=== PATIENT | female | born 1960 | race Caucasian/White ===

== ENCOUNTER 2018-05-09 07:23 | Emergency (ER) | payer OTHER ==
[~2018-05-09] VITALS: Ht 157.5 cm; Wt 98.0 kg
[~2018-05-09 07:23] MED LIST: OXYC-360 PO; ROPI.25 PO
[2018-05-09 07:25] VITALS: BP 192/102; PULSE 92; RESP 18; TEMP 97; O2SAT 96
[2018-05-09] MEDS ORDERED: DILT-48 PO (07:37)
[2018-05-09] MEDS ORDERED: CITA20TA4 PO (07:37)
--- NOTE | 2018-05-09 07:56 | PD ---
HPI Chief Complaint: Anxiety Time Seen by Provider: 07:35 Travel History International Travel<30 days: No Contact w/Intl Traveler<30days: No Traveled to known affect area: No History of Present Illness HPI This is a 57-year-old female who presents to the emergency department with increasing tearfulness, constant, severe, associated with intermittent shortness of breath, nausea and decreased appetite. Her 2 months ago and she finds that whenever she thinks about them she cannot stop crying. Her doctor started her on citalopram yesterday and she took her first dose but she feels like her symptoms are just getting worse. She denies any thoughts of hurting herself and she says she is a very optimistic person normally but she is really struggling to get her emotions under control and she feels sick. PFSH Past Medical History Cancer: Yes (facial) Diminished Hearing: No Hypertension: Yes Tetanus Vaccination: Unknown Influenza Vaccination: No ?: Not Past Surgical History Other Surgery: Yes (breast reduction) Social History Alcohol Use: Yes (occ) Tobacco Use: No Substance Use: No Allergies-Medications (Allergen,Severity, Reaction): Coded Allergies: No Known Allergies (Verified Adverse Reaction, Unknown, 05/09/18) Reported Meds & Prescriptions Reported Meds & Active Scripts Active Reported Diltiazem ER 24 HR 240 Mg Caper 240 Mg PO DAILY Citalopram (Citalopram Hydrobromide) 20 Mg Tab 20 Mg PO DAILY Review of Systems Except as stated in HPI: all other systems reviewed are Neg Physical Exam Narrative GENERAL: Tearful SKIN: Focused skin assessment warm and dry. HEAD: Atraumatic. Normocephalic. EYES: Pupils equal and round. No injection or drainage. ENT: Moist mucous membranes NECK: Trachea midline. CARDIOVASCULAR: Regular rate and rhythm. No murmur appreciated. RESPIRATORY: Clear to auscultation. Breath sounds equal bilaterally. GASTROINTESTINAL: Abdomen soft, non-tender, nondistended. MUSCULOSKELETAL: No obvious deformities. NEUROLOGICAL: Awake and alert. No obvious cranial nerve deficits. Moving all extremities.. PSYCHIATRIC: Tearful, no suicidal ideation Data Data Last Documented VS Vital Signs Date Time Temp Pulse Resp B/P (MAP) Pulse Ox O2 Delivery O2 Flow Rate FiO2 05/09/18 08:13 70 16 154/84 (107) 98 Room Air 05/09/18 07:25 97.0 Orders Orders Lorazepam Inj (Ativan Inj) (05/09/18 08:00) Sodium Chlor 0.9% 1000 Ml Inj (Ns 1000 M (05/09/18 08:00) Ondansetron Odt (Zofran Odt) (05/09/18 08:00) Acetaminophen (Tylenol) (05/09/18 08:00) ^ Insert Iv (05/09/18 07:54) Diltiazem Cd (Cardizem Cd) (05/09/18 08:30) MDM Medical Decision Making Medical Screen Exam Complete: Yes Emergency Medical Condition: Yes Differential Diagnosis Grief reaction, anxiety, depression, panic attack Narrative Course This is a 57-year-old female who presents to the emergency department having had her 2 months ago with increasing tearfulness and anxiety. On arrival she is hypertensive and tachypneic and very tearful. She appears to be having a panic attack. She was given IV Ativan and her symptoms improved significantly. I had a long conversation with her regarding normal grief reaction. I recommended that she consider an outpatient therapist or a bereavement support group and she was given information regarding our hospice bereavement program. She was given a short course of as needed Ativan but we discussed how this should only be used in an emergency and we discussed that this is a dependence forming medication. Patient will follow up with her primary care physician as an outpatient. Diagnosis Primary Impression: Grief reaction Additional Impression: Panic attack Patient Instructions: General Instructions Additional Instructions: If you have thoughts of hurting yourself or others or you feel unsafe return to the emergency room. Med/Other Pt SpecificInfo: Prescription(s) given Scripts Ondansetron Odt (Zofran Odt) 4 Mg Tab 4 MG SL Q6HR Y for Nausea/Vomiting, #15 TAB 0 Refills Prov: Cassandra Barker MD 05/09/18 Lorazepam (Ativan) 0.5 Mg Tab 0.5 MG PO Q8H Y for ANXIETY AND/OR AGITATION, #10 TAB 0 Refills Prov: Cassandra Barker MD 05/09/18 Disposition: 01 DISCHARGE HOME Condition: Stable Cassandra Barker MD May 09, 2018 07:56
[2018-05-09] MEDS ORDERED: LORazepam 2 MG/ML VIAL IV PUSH ONE (08:00)
[2018-05-09] MEDS ORDERED: ACETAMINOPHEN 500 MG CPLT PO ONE (08:00)
[2018-05-09] MEDS ORDERED: ONDANSETRON ODT 4 MG TAB PO ONE (08:00)
[2018-05-09] MEDS ORDERED: SODIUM CHLOR 0.9% 1000 ML INJ 1,000 ML IV ONE (08:00)
[2018-05-09 08:13] VITALS: BP 154/84; PULSE 70; RESP 16; O2SAT 98
[2018-05-09] MEDS ORDERED: DILTIAZEM-CD 240 MG CAP ER PO ONE (08:30)
[2018-05-09] MEDS ORDERED: ZOFR4TAB3 SL (08:35)
[2018-05-09] MEDS ORDERED: LORA-392 PO (08:35)
== END 2018-05-09 08:51 | disposition home or self-care (01) ==
LOC: PHED 07:23
DX: F43.29 Adjustment disorder with other symptoms (principal); F41.0 Panic disorder [episodic paroxysmal anxiety]; R06.02 Shortness of breath; R11.0 Nausea; R63.0 Anorexia; I10 Essential (primary) hypertension
CPT/HCPCS: 96374; 99284; J2060; J7030